=== PATIENT | female | born 1950 | race Caucasian/White ===

== ENCOUNTER → 2016-12-07 | Outpatient (CLI) | payer MEDICARE, OTHER ==
[~2016-12-07] MED LIST: ADVA250A INH; ALBUAER3 INH; ASPI81TA81 PO; ATOR40TA16 PO; BACL10TA PO; CLON0.5T PO; CLON1TAB PO; DIAZ5TAB PO; ERGO1CAP30 PO; ERGO2000 PO; GABA800T PO; LEVE10003 PO; LEVE500T8 PO; LOPE2CAP PO; METO25TA3 PO; MODA100T9 PO; MULT-65 PO; MULT1CAP2 PO; OMEP20TA PO; OXYC-392 PO; OXYC1TAB36 PO; PRIM50TA5 PO; PYRI60 PO; REBI22IN SQ; SYNT25TA PO; TERI14TA PO; TIZA4 PO; VITA100064 PO; ZOCO20TA PO
[2016-12-07 15:03] LABS: BLOOD, URINE NEG (NEG); GLUCOSE,URINE NEG (NEG); KETONE, URINE NEG (NEG); NITRITE,URINE NEG (NEG)
[2016-12-07 15:08] LABS: URINE COLOR YELLOW (YELLW/STRAW)
[2016-12-07 15:09] LABS: COMMENT (UR) CULT NOT INDICATED; CULTURE IF INDICATED CULT NOT INDICATED; SQUAMOUS EPITHELIAL CELL URINE 0-5 /hpf (0-5); WBC, URINE 0-2 /hpf (0-5)
--- NOTE | 2016-12-08 09:19 | EKG ---
Date Performed: 12/07/2016 Time Performed: 14:03:24 PTAGE: 66 years EKG: Sinus rhythm NORMAL ECG PREVIOUS TRACING : 03/29/2007 15.54 Compared to prior tracing no significant change DOCTOR: Rayray Shah Interpretating Date/Time 12/08/2016 09:17:06
== END ==
LOC: PHPRE 13:08
PROVIDERS: ATTEND Pain Medicine Interventional Pain Medicine
DX: Z01.810 Encounter for preprocedural cardiovascular examination (principal); Z01.812 Encounter for preprocedural laboratory examination
CPT/HCPCS: 36415; 81001; 93005

== ENCOUNTER → 2016-12-14 | Day surgery (SDC) | payer MEDICARE, OTHER ==
[~2016-12-14] VITALS: Ht 182.9 cm; Wt 84.5 kg
[~2016-12-14] MED LIST changes: +BACLOFEN PF INJ 10 MG/20 ML KIT IT ONE; +CHLORHEXIDINE GLUCONATE 2 % 1 PACK (2 CLOTHS) TOPICAL PRN; +CHLORHEXIDINE GLUCONATE 4% SOLN 120 ML BTL TOPICAL PRN; +FAMOTIDINE 20 MG/2 ML VIAL ONE; +INSULIN HUMAN REGULAR 1,000 UNITS/10 ML VIAL SQ PRN; +LACTATED RINGER'S 1000 ML IV PRN; +LIDOCAINE 1%/EPINEPHrine 1:100,000 SOLN 20 ML VIAL ONE; +METOPROLOL TARTRATE 25 MG TAB PO PRN; +MIDAZOLAM HCL 2 MG/2 ML VIAL ONE; +MORPHINE SULFATE 10 MG IT ONE; +ONDANSETRON HCL 4 MG/2 ML VIAL IV PUSH ONE; +PHENYLEPH/NS 1000 MCG/10 ML SYR IV ONE; +POVIDONE IODINE 5% (ANTISEPSIS KIT) 4 APPLICATIONS EACH NARE PRN; +PROPOFOL 200 MG/20 ML AMP IV ONE; +PUMP IT ONE; +SODIUM CHLORID 0.9% 500 ML IV PRN; +VANCOMYCIN 500 MG/NS 100 ML IV SCH; +ceFAZolin 1,000 MG/NS 100 ML IV SCH; +ePHEDrine/NS 25 MG/5 ML SYR IV ONE; +fentaNYL CITRATE 250 MCG/5 ML AMP ONE
[2016-12-14 15:10] VITALS: BP 128/75; PULSE 51; RESP 16; TEMP 98.2; O2SAT 97
--- NOTE | 2016-12-16 14:35 | MP ---
cc: KESHAV NELSON M.D. Corrected Copy: 12/19/16 DATE OF SURGERY: 12/14/2016. DATE OF : 1950. PROCEDURES PERFORMED: 1. Implantation of intrathecal catheter. 2. Implantation of Medtronic SynchroMed pump. PRE-PROCEDURE DIAGNOSIS: Paraplegia with pain and spasticity. POST-PROCEDURE DIAGNOSIS: Paraplegia with pain and spasticity. DESCRIPTION OF THE PROCEDURE IN DETAIL: IV was started in the holding area. Consent forms were signed. The patient was taken to the operating room and given general endotracheal anesthesia and then placed in the left lateral decubitus position. All pressure points were checked and padded. Then her lumbar area and her abdomen were prepped with Chloraprep and draped with sterile drapes. Fluoroscopy was used to visualize the L3-4 interlaminar space. The skin was infiltrated with 1% Xylocaine using a 27 gauge needle. Then a modified Tuohy needle from the [employer] kit was advanced under fluoroscopic guidance into the cerebrospinal fluid. Then a Medtronics Silastic catheter was threaded through the needle in a cephalad direction three vertebral bodies. Then an incision was made around the needle and an anchoring device was placed over the catheter and an anchoring device was anchored to the interspinous ligament using two 2-0 Ethibond sutures. Then the skin was infiltrated with 1% Xylocaine containing epinephrine in the right subcostal area. An incision was made. Blunt and sharp dissection were used to create a subcutaneous pocket. Hemostasis was controlled with a Bovie. A tunneling device was used to tunnel the intrathecal catheter around the right flank to the subcutaneous pocket. There was clear flow of cerebrospinal fluid through the catheter. Then a Medtronics SynchroMed pump which had been filled with a sterile solution of morphine and baclofen and covered with a Dacron cover was attached to a distal extension catheter over the nipple of the pump and then the distal extension catheter was connected to the intrathecal catheter by snapping the plastic ends of the connecting device. Then the incisions in the lumbar area and the abdominal areas were irrigated with Betadine. The Medtronic SynchroMed pump was anchored to the underlying fascia using three 2-0 Ethibond sutures and the pump's injection ports were facing the skin. Then the incisions were closed with 3-0 Monocryl in the subcuticular tissue and 3-0 nylon on the skin. The incisions were covered with sterile adhesive dressings and the patient was taken to the recovery room with stable vital signs. W. MD KHAI Ang/BRE /1:04 PM /12:53 PM
== END | disposition home or self-care (01) ==
LOC: PHSDC 08:55
PROVIDERS: ATTEND Pain Medicine Interventional Pain Medicine
DX: M54.5 Low back pain (principal); M62.830 Muscle spasm of back; G82.20 Paraplegia, unspecified; G35 Multiple sclerosis; I10 Essential (primary) hypertension; J44.9 Chronic obstructive pulmonary disease, unspecified; Z86.73 Personal history of transient ischemic attack (TIA), and cerebral infarction without residual deficits
CPT/HCPCS: 00300; 62350; 62362; 77003; C1755; C1772; J0475; J0690; J2250; J2274; J2370; J2405; J3010; J3370; J7120